=== PATIENT | female | born 1985 | race Caucasian/White ===

== ENCOUNTER 2018-12-29 16:26 | Outpatient (REF) | payer SELFPAY ==
[2018-12-29 19:36] LABS: HCT 40.6 % (36.0-46.0); HGB 13.8 g/dL (12.0-15.5); Mean Corpuscular Hemoglobin 30.1 pg (27.0-33.0); Mean Corpuscular Volume 88.5 fL (80-95); Mean Platelet Volume 9.9 fL (8.0-11.0); Platelet Count 406 x1000/uL (130-400); RBC 4.59 m/cumm (4.00-5.20); RBC Distribution Width 11.8 % (11.7-14.6); White Blood Cell Count 8.67 k/cumm (4.4-10.8)
[2018-12-29 20:47] LABS: TSH (W/Ref FT4) 4.28 uIU/mL (0.358-3.74)
[2018-12-29 21:44] LABS: FREE T4 0.78 ng/dL (0.76-1.46)
== END 2018-12-29 16:46 ==
LOC: NCHCN 16:26
PROVIDERS: PCP Family Medicine; Visit Provider Family Medicine
DX: F41.9 Anxiety disorder, unspecified (principal); Z00.00 Encounter for general adult medical examination without abnormal findings
CPT/HCPCS: 85027; 84439; 84443

== ENCOUNTER 2020-08-18 08:51 | Outpatient (CLI) | payer SELFPAY ==
[2020-08-20 16:36] LABS: COVID-19 RT-PCR Result NEGATIVE (Negative)
== END 2020-08-18 09:11 ==
PROVIDERS: PCP Family Medicine; Visit Provider Family Medicine
DX: Z20.828 Contact with and (suspected) exposure to other viral communicable diseases (principal)
CPT/HCPCS: U0003

== ENCOUNTER 2020-12-06 03:19 | Outpatient (CLI) | payer SELFPAY ==
[2020-12-07 14:01] LABS: COVID-19 RT-PCR UVMMC Result Negative (Negative)
== END 2020-12-06 03:20 | disposition home or self-care (01) ==
PROVIDERS: PCP Family Medicine; Visit Provider Family Medicine
DX: Z20.822 Contact with and (suspected) exposure to COVID-19 (principal)
CPT/HCPCS: U0003

== ENCOUNTER 2021-05-17 01:59 | Outpatient (CLI) | payer MEDICAID, SELFPAY ==
--- NOTE | 2021-05-17 08:30 | DI.MRI_ITS ---
Exam(s) MR LUMBAR SPINE WO EXAM: MR LUMBAR SPINE WO CLINICAL HISTORY: SCIATICA,M54.30, BACK PAIN. TECHNIQUE: Multiplanar multisequence MRI of the Lumbar spine was performed. COMPARISON: No exams were available for comparison FINDINGS: Bones: The last intervertebral disc space is designated the L5/S1 level for the numbering purpose of this examination. The vertebral body heights are well maintained. Alignment is satisfactory. There are degenerative endplate signal changes at L4-L5. Marrow signal is otherwise within normal limits. Cord: The conus tip ends at the T12 level. It is of normal size and signal intensity. T12-L1: No disc herniations or bulges are present. No central spinal canal or neural foraminal stenos is. L1-2: No disc herniations or bulges are present. No central spinal canal or neural foraminal stenosis . L2-3: No disc herniations or bulges are present. No central spinal canal or neural foraminal stenosis . L3-4: No disc herniations or bulges are present. No central spinal canal or neural foraminal stenosis . L4-5: There is a large central disc herniation. It causes marked central spinal canal stenosis. The thecal sac measures 3 4 mm in AP diameter. No significant neural foraminal stenosis. L5-S1: No disc herniations or bulges are present. No central spinal canal or neural foraminal stenosi s. Soft tissues: The visualized SI joints and sacrum are well maintained. The paraspinal soft tissues ar e unremarkable. IMPRESSION: 1. Large central disc herniation at L4-L5 causing marked central spinal canal stenosis. 2. Degenerative changes at the L4-5 disc level. DATA REPOSITORY:
== END 2021-05-17 02:19 ==
PROVIDERS: PCP Family Medicine; Visit Provider Nurse Practitioner
DX: M54.31 Sciatica, right side (principal); M51.26 Other intervertebral disc displacement, lumbar region; M48.061 Spinal stenosis, lumbar region without neurogenic claudication; M54.32 Sciatica, left side
CPT/HCPCS: 72148

== ENCOUNTER 2022-04-23 13:45 | Outpatient (REF) | payer MEDICAID, SELFPAY ==
--- NOTE | 2022-04-23 11:20 | PAPFT_PTH ---
PATIENT: Delicia Israel LOC: [facility] U#:[id number] AGE/SX: 36/F ROOM: RE04/23/[address]: Gina Reaves DO : 1985 BED: DIS: 04/23/2022 SPEC #: [id number] RECD: 04/23/22 16:59 STATUS: SEBASTIAN REQ #: [id number] WILLIAM: 04/23/22 11:[address]: Gina Reaves DEPT: [facility] Cytology RECD BY: Berny Wallace Tissues: 1 - CX/ENDOCX FOR PAP SMEARS Procedures: PAP THIN PREP/UVM Screening HPV DNA PROBE Comments: [id number] (Chlamydia/GC)
[2022-04-24 15:31] LABS: Chlamydia Result Negative (Negative); GC Result Negative (Negative)
== END 2022-04-23 13:46 | disposition home or self-care (01) ==
LOC: LBN 13:45
PROVIDERS: PCP Family Medicine; Visit Provider Obstetrics & Gynecology
DX: Z12.4 Encounter for screening for malignant neoplasm of cervix (principal); Z11.51 Encounter for screening for human papillomavirus (HPV)
CPT/HCPCS: 87491; 87591; 88142; 87624

== ENCOUNTER 2022-10-12 13:59 | Emergency (ER) | payer OTHER, MEDICAID, SELFPAY ==
[2022-10-12] VITALS (9 sets, daily range): BP systolic 112–143; BP diastolic 66–90; PULSE 78–90; RESP 18–19; TEMP 36.4–36.7; O2SAT 98–99
--- NOTE | 2022-10-12 14:35 | ED.GENADUL_ITS ---
Discharge Plan Discharge Details Chief Complaint: HeadInjury Primary Care Provider: Naila Ortiz ED Provider: Kin Enriquez Home Meds and New Rx's Prescriptions: No Action Mirena 1 EACH intrauterine device 1 ea Intrauterine ONCE Qty: 1 multivitamin 1 EACH capsule 1 ea PO DAILY Medical Decision Making This is a 37-year-old female with a Janna history of petit mall seizures, currently opting not to seek any treatment for this as she has not cared for the side effects of the medication. She reports at baseline she has at least 20 seizures a day lasting anywhere between 3-5 seconds, reports may be having them more frequently today. She also reports posterior neck pain. Will place into a hard c-collar and obtain CT imaging of her brain and C-spine. Clinically she appears well, nontoxic, neurologically intact, I have not witnessed any seizure activity. Once imaging is back we will likely seek a neurology consultation. Unless CT is abnormal, I do not believe that laboratory values are likely indicated. CT imaging unremarkable. C-collar removed. A neurology consultation with [facility] neurology has been requested. 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 Medical Records Medical records reviewed: Yes I reviewed the patient's medical records. Imaging Data Radiologic Study: Attestation: I personally reviewed and interpreted this imaging study as follows: Imaging: CT Scan Radiologist's impression: Exam(s) CT HEAD CERVICAL SPINE WO EXAM: CT HEAD CERVICAL SPINE WO CLINICAL HISTORY: fall/pain, seizure, hx of same. TECHNIQUE: Imaging Protocol: Axial computed tomography images with coronal and sagittal reformatted images were created and reviewed COMPARISON: CT HEAD WITH/WITHOUT CONTRAST from 06/07/2010 FINDINGS: CT Head: Ventricles and Extra axial spaces: Normal in size and morphology for the patient's age. Hemorrhage: None. Cerebral parenchyma: Normal. Midline shift: None. Brainstem/Cerebellum: Normal. Calvarium: Normal. Visualized Paranasal sinuses/Mastoids: Clear. Soft Tissues: Unremarkable. CT Cervical Spine: Bones: No acute fracture or subluxation. Soft Tissues: Unremarkable. Lung Apices: Clear. IMPRESSION: 1. No acute intracranial process. 2. No acute fracture or subluxation in the cervical spine. 3. Findings were discussed with the emergency department at 3:44 p.m. on 10/12/2022. HPI General Mode of arrival: ambulatory . Date/Time Provider Initiated Documentation: 10/12/22 14:15 . Limitations to Documentation: no limitations . Information obtained by: patient . HPI Narrative: This is a 37-year-old female who reports past medical history of petit mall seizures since the age of 89 years old, reports that she gets anywhere between 20-60 seizures daily, had a mechanical fall earlier today striking the back of her head, no LOC, since that time increased seizure activity. Patient reports around 930 this morning having had a slip, mechanical fall striking the back of her head. No LOC, but does report global headache and posterior neck pain. She denies change of vision, vomiting, any other distracting injuries. Patient states that she feels as though she has been having her typical petit mall seizures that she describes as staring off out into [place] lasting anywhere between 3 and 5 seconds, sometimes piggybacking after 1 another. Patient states that her work is sent her to urgent care who then sent her to the ER. Patient states that she is not currently on any antiepileptic medications as she did not like the side effects and is followed by [facility] neurology. Denies any other recent illness or trauma. Related Data Home Medications Medication Instructions Recorded Confirmed multivitamin 1 ea PO DAILY 07/08/17 10/12/22 levonorgestrel 20 mcg/24 hours (8 1 ea intrauterine ONCE #1 implant 03/06/18 10/12/22 yrs) 52 mg intrauterine device (Mirena) Allergies Allergy/AdvReac Type Severity Reaction Status Date / Time Sulfa (Sulfonamide Allergy Intermediate hives Verified 10/12/22 14:37 Antibiotics) sulfamethoxazole Allergy Intermediate Skin Rash Verified 10/12/22 14:37 [From Bactrim] trimethoprim [From Bactrim] Allergy Intermediate Skin Rash Verified 10/12/22 14:37 Latex, Natural Rubber Allergy Skin Rash Verified 10/12/22 14:37 General Stated Complaint: HeadInjury MARY BETH: 2 Review of Systems Constitutional Constitutional: Denies fatigue, Denies fever(s), Reports headache(s) and Denies weakness Eyes Eyes: Denies change in vision ENT Ears, Nose, Mouth, and Throat: Reports headache(s) and Denies neck pain Cardiovascular Cardiovascular: Denies chest pain and Denies dyspnea Respiratory Respiratory: Denies cough and Denies dyspnea Gastrointestinal Gastrointestinal: Denies abdominal pain, Reports nausea and Denies vomiting Musculoskeletal Musculoskeletal: Reports back pain (Chronic), Denies neck pain, Denies numbness and Denies tingling Integumentary/Breasts Skin/Breast: Denies rash Neurologic Neurologic: Reports headache(s), Denies numbness, Denies tingling and Denies w eakness Endocrine Endocrine: Denies fatigue PFSH All Active Problems Headache (Acute 04/21/13) IUD surveillance (Acute 12/31/17) Overactive bladder (Acute 03/06/18) examination or test, positive result (Acute 02/16/13) Petit mal status (Acute 02/16/13) Supervision of normal first (Acute 02/24/13) FOR GET TO KNOW VISIT TODAY OAB (overactive bladder) (Acute) Medical History Acute pancreatitis Anemia Off and on with blood donations Cholelithiasis Hyperlipidemia Resolved with diet Migraine Petit mal status Dx age 8yrs Surgical History section Cholecystectomy (07/10/17) Tonsillectomy 2013 Family History Other Diabetes Heart disease Hyperlipidemia Mental disorder Personal history of malignant neoplasm Social History Smoking/Tobacco Use Status: Never Smoking risk assessment performed?: Yes Alcohol Intake: current Alcohol Intake frequency: a few times a month Drug use: Never Substance use type: does not use Seatbelt use: always Do you feel safe at home: Yes Do you feel safe in your relationship?: Yes History History 1 Para 1 Hx # Term Pregnancies 1 Multiple births Hx # Pregnancies Ectopic pregnancies AB induced Hx Number of Living Children 1 AB spontaneous Exam Const General: cooperative, healthy appearing, comfortable and no acute distress Orientation: alert, awake and oriented x3 HENMT Head: normocephalic Head images: 1. Contusion, tenderness, no crepitus. Ears: external ears normal, TM's normal bilaterally and EAC's normal Face and sinus: normal facial exam Mouth: moist mucous membranes Throat: posterior oropharynx normal Eyes General: appearance normal, both eyes and all related structures Conjunctivae: conjunctivae normal Neck Neck: normal visual inspection, full ROM, no meningeal signs, trachea midline, supple and tender (Diffuse mild posterior) Resp Effort & Inspection: normal respiratory effort and able to speak in complete sentences Auscultation: clear to auscultation bilaterally Cardio Rate: regular rate Rhythm: regular rhythm GI Palpation: soft, not firm, no guarding and nontender Back/Spine/Pelvis Back: no CVA tenderness Skin General skin exam: no rashes or lesions noted Neuro General: patient alert, patient awake, patient oriented x3, moves all extremities and no focal motor deficits Cranial Nerves: CN's II-XI intact bilaterally Cognition: normal cognition Speech: speech normal Gait: normal gait Motor: muscle tone normal throughout, strength 5/5 throughout, no movement abnormalities noted and no fasciculations Sensory Exam: no sensory deficits noted Extrem General: normal to inspection, full ROM, capillary refill normal, no pedal edema and no calf tenderness Psych Appearance: grossly normal Mental Status: mental status grossly normal Course Vital Signs Vital signs: Vital Signs Pulse 89 10/12/22 14:10 Respiratory Rate 18 10/12/22 14:10 Blood Pressure 134/90 10/12/22 14:10 Pulse Oximetry 99 10/12/22 14:10 Pulse 89 10/12/22 14:10 Respiratory Rate 18 10/12/22 14:10 Respiratory Effort 10/12/22 14:15 Blood Pressure 134/90 10/12/22 14:10 Blood Pressure Position Sitting 10/12/22 14:10 Pulse Oximetry 99 10/12/22 14:10 Oxygen Delivery Method Room Air 10/12/22 14:10 Oxygen Flow Rate 0 10/12/22 14:10 Pain Level 7 10/12/22 14:10
[2022-10-12] MEDS: Ondansetron O.D.T. 4 MG TABEF PO (14:47)
--- NOTE | 2022-10-12 15:00 | DI.CT_ITS ---
Exam(s) CT HEAD CERVICAL SPINE WO EXAM: CT HEAD CERVICAL SPINE WO CLINICAL HISTORY: fall/pain, seizure, hx of same. TECHNIQUE: Imaging Protocol: Axial computed tomography images with coronal and sagittal reformatted images were created and reviewed COMPARISON: CT HEAD WITH/WITHOUT CONTRAST from 06/07/2010 FINDINGS: CT Head: Ventricles and Extra axial spaces: Normal in size and morphology for the patient's age. Hemorrhage: None. Cerebral parenchyma: Normal. Midline shift: None. Brainstem/Cerebellum: Normal. Calvarium: Normal. Visualized Paranasal sinuses/Mastoids: Clear. Soft Tissues: Unremarkable. CT Cervical Spine: Bones: No acute fracture or subluxation. Soft Tissues: Unremarkable. Lung Apices: Clear. IMPRESSION: 1. No acute intracranial process. 2. No acute fracture or subluxation in the cervical spine. 3. Findings were discussed with the emergency department at 3:44 p.m. on 10/12/2022. RADIATION DOSE DELIVERED: 1,688.92mGy.cm Total DLP DATA REPOSITORY: All CT scans at this facility are submitted to the National Radiology Data Registry (NRDR) Dose Index Registry (DIR) with the [employer] (ACR). RADIATION OPTIMIZATION: All CT scans at this facility use at least one of these dose optimization te chniques: automated exposure control; mA and/or kV adjustment per patient size (includes targeted exa ms where dose is matched to clinical indication); or iterative reconstruction.
--- NOTE | 2022-10-12 16:23 | W.EDPROG ---
Date of service: 10/12/22 Time of Service: 16:23 Medical Decision Making Care assumed from provider (TAMELA Fishman) Please see their initial HPI, PE, and documentation. Discussed patient details and case and pending workup and disposition. Patient is hemodynamically stable, and alert and oriented. At the time of signout awaiting callback from [facility] neurology. Patient states that she has not seen [facility] neurology for the last 9 years. I did recommend follow-up with [facility] neurologist Leonela Bermudez for possible EEG if things continue to worsen. Patient verbalized understanding. She reports that she is not interested in seizure medications at this time. She is alert and oriented she does have a small hematoma on the occiput scalp is requesting some Tylenol. Patient refuses to take any seizure medications. 1645: Spoke with Dr. Gwendolyn Smith MD at [facility] Neurology, . I discussed the patient case in details with her she verbalized understanding. She does recommend close follow-up due to increased risk of or brain damage due to seizures I will reiterate that to the patient and stressed close follow-up she was placed on a care management list and given a referral for local neurologist Leonela Bermudez. I did discuss home care strict follow-up instructions and return instructions she verbalized understanding. She was ambulatory without difficulty prior to discharge alert and oriented. She remained hemodynamically stable throughout her entire stay. This text was generated using [employer] dictation system, please disregard any oddities of phrase or misspellings. Medical Records Medical records reviewed: Yes I reviewed the patient's medical records. Sign Out Sign Out Data: Sign Out Comment: Chronic petit mall seizures for 30 years, mechanical slip and fall today sustaining head injury. Head CT as well as C-spine CT unremarkable. C-collar removed. Awaiting neurology consultation at [facility]. Last updated by Kin Enriquez PA at 10/12/22 15:56 Discharge Plan Disposition Patient Disposition: Home Condition: Stable Discharge Details Clinical Impression: Closed head injury with concussion Primary Care Provider: Naila Ortiz ED Provider: Mireille Garcia Home Meds and New Rx's Prescriptions: Continued Mirena 1 EACH intrauterine device 1 ea Intrauterine ONCE Qty: 1 multivitamin 1 EACH capsule 1 ea PO DAILY Discharge Instructions Instructions: Concussion (ED), Head Injury (ED) Additional Instructions: CT head within normal limits no evidence of bleeding or fracture or broken bones on the CT scan. Please consider following up with a local neurologist John Bermudez if the seizures worsen or for further eval. We placed you on a care management list to assist in follow-up. Follow up with primary care provider in 3-5 days. Return to ED sooner if any worsening or concerns. Increase oral fluids. Please take Tylenol or Ibuprofen with food every 4-6 hours as needed for pain and swelling. Stand Alone Forms: Work Release Referrals: Leonela Bermudez MD [ [facility] STAFF PHYSICIAN] - 2 weeks Discharge Data Discharge Date/Time-TO BE ENTERED AT DEPARTURE: 10/12/22 16:58
[2022-10-12] MEDS: Acetaminophen 325 MG TAB 650 MG PO (16:55)
--- NOTE | 2022-10-12 20:40 | NUR.NOTE ---
Nursing Note:Referral faxed to [facility] Neurology for closed head injury scheduled for 2 weeks
== END 2022-10-12 16:58 | disposition home or self-care (01) ==
PROVIDERS: Emergency Provider Registered Nurse Emergency; PCP Family Medicine
DX: S00.03XA Contusion of scalp, initial encounter (principal); S06.0X0A Concussion without loss of consciousness, initial encounter; W01.0XXA Fall on same level from slipping, tripping and stumbling without subsequent striking against object, initial encounter
CPT/HCPCS: 99284; 70450; 72125

== ENCOUNTER → 2023-08-27 12:48 | Outpatient (CLI) | payer MEDICAID, SELFPAY ==
--- NOTE | 2023-08-27 | DI.RAD_ITS ---
Exam(s) XR CHEST 2V PA LATERAL EXAM: XR CHEST 2V PA LATERAL CLINICAL HISTORY: WORSENING COUGH WITH BRONCHOSPASM,?PNEUMONIA, ACUTE BRONCHITIS,J20.9 TECHNIQUE: 2D digital imaging was performed. COMPARISON: No exams were available for comparison FINDINGS: HEART: Normal size. Aorta: Not dilated. PULMONARY VASCULATURE: Normal. LUNGS: Clear. No infiltrate. No peribronchial thickening. PLEURAL SPACE: No pleural effusion or pneumothorax. BONE:Unremarkable for age. Soft tissues: Unremarkable. IMPRESSION: No acute abnormality. DATA REPOSITORY: RADIATION DOSE DELIVERED:
== END ==
PROVIDERS: PCP Family Medicine; Visit Provider Nurse Practitioner Family
DX: J20.9 Acute bronchitis, unspecified (principal)
CPT/HCPCS: 71046

== ENCOUNTER 2025-05-03 07:51 | Emergency (ER) | payer BC, SELFPAY ==
[2025-05-03 08:00] VITALS: BP 160/93; PULSE 86; RESP 18; TEMP 36.8; O2SAT 99
[2025-05-03 08:04] VITALS: BP 160/93; PULSE 86; RESP 18; TEMP 36.8; O2SAT 99
--- NOTE | 2025-05-03 08:15 | DI.CT_ITS ---
Exam(s) CT ABDOMEN PELVIS W EXAM: CT ABDOMEN PELVIS W CLINICAL HISTORY: Abdominal pain, NVD,Right Flank pain. TECHNIQUE: Imaging Protocol: Axial computed tomography images with coronal and sagittal reformatted images were created and reviewed CONTRAST MATERIAL: Intravenous: Omnipaque-350 100cc Oral: None COMPARISON: CT ABD PELVIS WITH CONTRAST from 06/03/2017 FINDINGS: VISUALIZED LUNG BASES: No nodules nor pleural effusions evident. ABDOMEN: There is no ascites. LIVER: Liver is hypodense implying steatosis. There no discrete focal hepatic lesions evident. No dilated intrahepatic ducts. GALLBLADDER/BILIARY: Gallbladder is surgically absent. CBD is not dilated. PANCREAS: Pancreas appears unremarkable with no evidence of pancreatitis, as was evident in 2017. Pancreatic duct is not dilated. No pancreatic masses nor pancreatic calcifications evident. SPLEEN: Spleen is not enlarged. No obvious intrasplenic lesions. Splenic and portal veins are patent. ADRENALS: There are no significant adrenal masses. KIDNEYS:No cysts evident. No solid renal masses. No calculi nor hydronephrosis.. ABDOMINAL AORTA: Abdominal aorta is not enlarged. LYMPH NODES:There are multiple enlarged lymph nodes in the mesentery, measuring up to 1.2 cm size. These are predominately right-sided. ABDOMINAL WALL: No evidence of significant anterior abdominal wall nor inguinal hernia. GI: There is no evidence of bowel obstruction, free air, nor abscess. PELVIS: GI: Appendix difficult to identify is a separate structure but there is no evidence of obvious acute appendicitis.No evidence of sigmoid diverticulitis. LYMPH NODES: There is no intrapelvic nor inguinal adenopathy. REPRODUCTIVE: There is an IUD in the endometrial canal of the uterus which appears to be in satisfactory position. Left adnexa unremarkable. There is a peripherally enhancing small cyst in the right ovary, probably corpus luteal. There is a tiny amount of free fluid in the right adnexa and cul-de-sac. URINARY BLADDER: No calculi nor obvious masses evident OSSEOUS: No fractures and no significant osseous lesions. Chronic disc space narrowing at L4-5 level. No listhesis. IMPRESSION: 1. Appendix not identified. No evidence of obvious appendicitis. 2. There are multiple predominantly right-sided enlarged mesenteric lymph nodes measuring up to 12 mm size. Consider mesenteric adenitis. 3. There is a small peripherally enhancing right ovarian cyst which may be corpus luteal. There is small amount of free fluid in the right adnexa and cul-de-sac. 4. There is an IUD in satisfactory position in the endometrial canal. 5. No evidence of pancreatitis, as was evident in 2017. There is also been interval cholecystectomy. Discussed by phone with ER provider 05/03/2025 at 9:20 a.m. RADIATION DOSE DELIVERED: 744.58mGy.cm Total DLP DATA REPOSITORY: All CT scans at this facility are submitted to the National Radiology Data Registry (NRDR) Dose Index Registry (DIR) with the [employer] (ACR). RADIATION OPTIMIZATION: All CT scans at this facility use at least one of these dose optimization techniques: automated exposure control; mA and/or kV adjustment per patient size (includes targeted exams where dose is matched to clinical indication); or iterative reconstruction.
--- NOTE | 2025-05-03 08:19 | ED.GENADUL_ITS ---
Discharge Plan Disposition Patient Disposition: Home Condition: Stable Discharge Details Clinical Impression: Cyst of right ovary, Acute mesenteric adenitis Primary Care Provider: Naila Ortiz ED Provider: Mireille Garcia Home Meds and New Rx's Prescriptions: New dicyclomine 20 mg tablet 20 mg PO TID PRN (Reason: stomach upset) 5 Days Qty: 14 0RF Rx Instructions: Take 1 tablet up to 3 times daily as needed for stomach cramps or stomach upset ondansetron 4 mg tablet,disintegrating 4 mg PO Q8H PRN (Reason: nausea and vomiting) 4 Days Qty: 9 0RF Rx Instructions: Take 1 tablet up to 3 times daily as needed for nausea and vomiting 20 minutes prior to meals. No Action Mirena 1 EACH intrauterine device 1 ea Intrauterine ONCE Qty: 1 Discharge Instructions Instructions: Mesenteric Lymphadenitis (DC), Ovarian Cyst ED Additional Instructions: At this time it does appear that you have a right ovarian cyst which is very small could be causing some of your abdominal pain. You also have some lymph node inflammation around the lining of your bowels. This could be due to a virus. Follow up with primary care provider in 7-10 days. Return to ED sooner if any worsening abdominal pain, vomiting not relieved by medication, fever or concerns. Please take the nausea medication as directed. Increase oral fluids. Please take Tylenol or Ibuprofen with food every 4-6 hours as needed for pain and swelling. You may also take the Bentyl which is for stomach cramping as prescribed. Thank you for allowing us to care for you today. Referrals: Naila Ortiz MD [Primary Care Provider, Medicine] - 2 weeks Referral Note: ER Follow up call for an appt Clinical Impression: Acute mesenteric adenitis; Cyst of right ovary Discharge Data Discharge Date/Time-TO BE ENTERED AT DEPARTURE: 05/03/25 11:25 HPI General Mode of arrival: ambulatory . Date/Time Provider Initiated Documentation: 05/03/25 08:08 . Limitations to Documentation: no limitations . Information obtained by: patient, RN notes reviewed and old records reviewed . HPI Narrative: 39-year-old female presents to the ER with a chief complaint of generalized abdominal pain, nausea vomiting diarrhea since Saturday. She had some leftover Zofran and took 1 a day up to Saturday. Beginning on Saturday again began with loose watery stools and recurrence of nausea vomiting. She is also complaining of bilateral flank pain which began on the right flank. Denies any fever or chills, does have a history surgically of cholecystectomy 2019, history of pancreatitis cholelithiasis hyperlipidemia, she has had a lumbar spine operation tonsillectomy, as well. Related Data Home Medications ?Medication ?Instructions ?Recorded ?Confirmed levonorgestrel (Mirena) 1 ea intrauterine ONCE #1 im plant 03/06/18 05/03/25 dicyclomine 20 mg tablet 20 mg PO TID PRN stomach ups et 5 05/03/25 days #14 tabs ondansetron 4 mg disintegrating 4 mg PO Q8H PRN nausea and 05/03/25 tablet vomiting 4 days #9 tabs Previous Rx's ?Medication ?Instructions ?Recorded dicyclomine 20 mg tablet 20 mg PO TID PRN stomach ups et 5 05/03/25 days #14 tabs ondansetron 4 mg disintegrating 4 mg PO Q8H PRN nausea and 05/03/25 tablet vomiting 4 days #9 tabs Allergies Allergy/AdvReac Type Severity Reaction Status Date / Time Sulfa (Sulfonamide Allergy Intermediate hives Verified 05/03/25 08:02 Antibiotics) sulfamethoxazole (From Allergy Intermediate Skin Rash Verified 05/03/25 08:02 Bactrim) trimethoprim (From Bactrim) Allergy Intermediate Skin Rash Verified 05/03/25 08:02 Latex, Natural Rubber Allergy Skin Rash Verified 05/03/25 08:02 ciprofloxacin AdvReac Severe Other (See Verified 05/03/25 08:02 Comment) General Stated Complaint: Nausea/Vomit/Diar MARY BETH: 3 Review of Systems All systems reviewed & are unremarkable except as noted in HPI and below Constitutional Constitutional: Reports as per HPI and Denies fever(s) Cardiovascular Cardiovascular: Denies chest pain and Denies dyspnea Respiratory Respiratory: Denies cough and Denies dyspnea Gastrointestinal Gastrointestinal: Reports abdominal pain, Reports cramping, Reports diarrhea, Reports nausea and Reports vomiting Genitourinary Genitourinary: Reports flank pain Exam Narrative Exam Narrative: Constitutional: Alert and oriented x3. Appears stated age. Overweight body habitus. Head: Normocephalic, no trauma. Eyes: Pupils PERRL, Red reflex noted, EOM's intact. Eyelids symmetrical without lesions, discharge, or swelling. Chest: RRR, Normal S1, S2, distal pulses intact. Resp: Lungs clear to auscultation bilaterally, no wheezes, rales, or rhonchi. Abdomen: Soft, non-distended, Normoactive bowel sounds all 4 quads. Generalized tenderness palpation all 4 quadrants. Right CVA tenderness, Musculoskeletal: Normal gait, Moves all 4 extremities without difficulty. Skin: No suspicious rashes or lesions. Capillary refill less than 2 sec. Neurologic: Cranial nerves II-XII intact. Alert and oriented x 3. Motor: No deficits noted. Course Vital Signs Vital signs: Vital Signs Temperature 36.8 C 05/03/25 08:00 Pulse 86 05/03/25 08:00 Respiratory Rate 18 05/03/25 08:00 Blood Pressure 160/93 H 05/03/25 08:00 Pulse Oximetry 99 05/03/25 08:00 Temperature 36.8 C 05/03/25 08:04 Pulse 86 05/03/25 08:04 Respiratory Rate 18 05/03/25 08:04 Blood Pressure 160/93 H 05/03/25 08:04 Pulse Oximetry 99 05/03/25 08:04 Oxygen Delivery Method Room Air 05/03/25 08:04 Oxygen Flow Rate 0 05/03/25 08:04 Medical Decision Making 39-year-old female presents to the ER with a chief complaint of generalized abdominal pain, nausea vomiting diarrhea since Saturday. She had some leftover Zofran and took 1 a day up to Saturday. Beginning on Saturday again began with l oose watery stools and recurrence of nausea vomiting. She is also complaining of bilateral flank pain which began on the right flank. Denies any fever or chills, does have a history surgically of cholecystectomy 2018, history of pancreatitis cholelithiasis hyperlipidemia, she has had a lumbar spine operation tonsillectomy, as well. Workup ordered including CBC CMP lipase urinalysis urine CT abdomen pelvis with IV contrast, Zofran 4 mg and a liter of normal saline. Differential diagnosis includes but not limited to pancreatitis, gastroenteritis, kidney stone, pyelonephritis CT imaging shows a right sided ovarian cyst, mesenteric adenitis largest lymph node measuring approximately 1.2 cm, please see official report. Hepatitis panel added onto labs due to elevated AST and ALT. No leukocytosis on CBC, sodium potassium within normal limits glucose slightly elevated at 115 no evidence of UTI. Discussed results and follow-up care and strict return instructions with patient who verbalized understanding. Patient remaining alert and oriented he mg accident. Remainder of her stay. This text was generated using [employer] dictation system, please disregard any oddities of phrase or misspellings. Imaging Data Radiologic Study: Imaging: CT Scan Radiologist's impression: IMPRESSION: 1. Appendix not identified. No evidence of obvious appendicitis. 2. There are multiple predominantly right-sided enlarged mesenteric lymph nodes measuring up to 12 mm size. Consider mesenteric adenitis. 3. There is a small peripherally enhancing right ovarian cyst which may be corpus luteal. There is small amount of free fluid in the right adnexa and cul-de-sac. 4. There is an IUD in satisfactory position in the endometrial canal. 5. No evidence of pancreatitis, as was evident in 2017. There is also been interval cholecystectomy. Lab Data Lab results reviewed: Yes I reviewed the patient's lab results. Labs: Laboratory Tests Range/Units 05/03/25 05/03/25 08:13 10:20 WBC (4.4-10.8) 10^3/uL 6.23 RBC (3.93-5.22) 10^6/uL 4.83 Hgb (11.2-15.7) g/dL 14.1 Hct (36.0-46.0) % 42.5 MCV (80-95) fL 88 MCH (27.0-33.0) pg 29.2 MCHC (32.0-36.0) % 33.2 RDW (11.7-14.6) % 11.9 Plt Count (130-400) 10^3/uL 353 MPV (8.0-11.0) fL 9.3 Immature Gran % % 0.3 Neutrophils % % 61.0 Lymphocytes % % 28.7 Monocytes % % 4.2 Eosinophils % % 4.8 Basophils % % 1.0 Nucleated RBC % (0.0-0.3) % 0.0 Absolute Neutrophils (1.2-6.7) 10^3/uL 3.80 Absolute Lymphocytes (1.2-3.4) 10^3/uL 1.79 Absolute Monocytes (0.1-0.8) 10^3/uL 0.26 Absolute Eosinophils (0.0-0.7) 10^3/uL 0.30 Absolute Basophils (0.0-0.2) 10^3/uL 0.06 RBC Morphology Normal Sodium (136-145) mmol/L 143 Potassium (3.5-5.1) mmol/L 3.5 Chloride (98-107) mmol/L 105 Carbon Dioxide (21.0-32.0) mmol/L 27.8 Anion Gap (3-11) mmol/L 10.2 BUN (7-18) mg/dL 8 Creatinine (0.55-1.02) mg/dL 0.9 Est GFR (CKD-EPI 2020) (mL/min/1.73m2) 82.88 Glucose (74-106) mg/dL 115 H Calcium (8.5-10.1) mg/dL 9.2 Magnesium (1.8-2.4) mg/dL 2.0 Total Bilirubin (0.2-1.0) mg/dL 0.4 AST (15-37) U/L 47 H ALT (14-59) U/L 119 H Alkaline Phosphatase (46-116) U/L 80 Total Protein (6.4-8.2) g/dL 7.5 Albumin (3.4-5.0) g/dL 4.3 Lipase (<78) U/L 43 Urine Color (Yellow) Yellow Urine Clarity (Clear) Clear Urine pH (5-8) 7.0 Ur Specific [place] (1.005-1.025) 1.010 Urine Protein (Neg-Trace) mg/dL Negative Urine Ketones (Negative) mg/dL Negative Urine Blood (Negative) Negative Urine Nitrite (Negative) Negative Urine Bilirubin (Negative) Negative Urine Urobilinogen (Up to 0.2) mg/dL 0.2 Ur Leukocyte Esterase (Negative) Negative Urine Glucose (Negative) mg/dL Negative PFSH All Active Problems (Updated 05/03/25 @ 11:00 by Mireille Garcia NP) Acute mesenteric adenitis (Acute) Cyst of right ovary (Acute) Chronic headache (Acute) Migraine headache without aura (Acute) Epilepsy, generalized, nonconvulsive (Acute) IUD surveillance (Acute 12/31/17) Overactive bladder (Acute 03/06/18) Medical History Acute pancreatitis Cholelithiasis Hyperlipidemia Resolved with diet Anemia Off and on with blood donations Surgical History S/P lumbar spine operation S/P tonsillectomy S/P cholecystectomy S/P section Family History Father Hypertension Other Diabetes Heart disease Hyperlipidemia Mental disorder Personal history of malignant neoplasm Social History Smoking/Tobacco Use Status: Never Smoking risk assessment performed?: Yes Alcohol Intake: former Drug use: Never Substance use type: does not use Number of Children: 1 current occupation: [employer] Seatbelt use: always Do you feel safe at home: Yes Do you feel safe in your relationship?: Yes History History 1 Para 1 Hx # Term Pregnancies 1 Multiple births Hx # Pregnancies Ectopic pregnancies AB induced Hx Number of Living Children 1 AB spontaneous
[2025-05-03 08:31] LABS: Abs Immature Grans 0.02 10^3/uL (0.0-0.06); HCT 42.5 % (36.0-46.0); HGB 14.1 g/dL (11.2-15.7); Immature Grans % 0.3 %; MCH 29.2 pg (27.0-33.0); MCHC 33.2 % (32.0-36.0); MCV 88 fL (80-95); MPV 9.3 fL (8.0-11.0); Platelet Count 353 10^3/uL (130-400); RBC 4.83 10^6/uL (3.93-5.22); RDW 11.9 % (11.7-14.6); RDW-SD 38.3 fL; WBC 6.23 10^3/uL (4.4-10.8)
[2025-05-03 08:39] LABS: Lipase 43 U/L (<78)
[2025-05-03 08:45] LABS: ALT 119 U/L (14-59); AST 47 U/L (15-37); Albumin 4.3 g/dL (3.4-5.0); Alkaline Phosphatase 80 U/L (46-116); Anion Gap 10.2 mmol/L (3-11); BUN 8 mg/dL (7-18); Bilirubin, Total 0.4 mg/dL (0.2-1.0); CO2 27.8 mmol/L (21.0-32.0); Calcium 9.2 mg/dL (8.5-10.1); Chloride 105 mmol/L (98-107); Estimated GFR 82.88 (mL/min/1.73m2); Glucose 115 mg/dL (74-106); Magnesium 2.0 mg/dL (1.8-2.4); Potassium 3.5 mmol/L (3.5-5.1); RBC Morphology Normal; Sodium 143 mmol/L (136-145); Total Protein 7.5 g/dL (6.4-8.2)
[2025-05-03] MEDS: Omnipaque 350 MG/ML 100 ML BTL IJ (09:18)
[2025-05-03] MEDS: Normal Saline - Diluent 50 ML VIAL IJ (09:19)
[2025-05-03] MEDS: Ondansetron 4 MG/2 ML VIAL IVP (09:23)
[2025-05-03] MEDS: Normal Saline 1,000 ML 1000 ML IV (09:23)
[2025-05-03 10:38] LABS: Glucose Negative (Negative)
[2025-05-03 11:25] VITALS: BP 123/94; PULSE 79; RESP 16; O2SAT 100
[2025-05-03 19:05] LABS: Hepatitis A Antibody IgM Negative (Negative); Hepatitis C Ab w Rflx HCV PCR Negative (Negative)
== END 2025-05-03 11:25 | disposition home or self-care (01) ==
PROVIDERS: Emergency Provider Registered Nurse Emergency; PCP Family Medicine
DX: I88.0 Nonspecific mesenteric lymphadenitis (principal); R11.2 Nausea with vomiting, unspecified; R19.7 Diarrhea, unspecified; N83.201 Unspecified ovarian cyst, right side; R10.31 Right lower quadrant pain; R10.32 Left lower quadrant pain
CPT/HCPCS: 80053; 83690; 86704; 86709; 86803; 87340; 96361; 96374; 99285; 74177; 81003; 83735; 85025; 99284; J2405; J3490